=== PATIENT | male | born 1960 | race Caucasian/White ===

== ENCOUNTER → 2022-07-18 10:40 | Outpatient (CLI) | payer OTHER, SELFPAY ==
--- NOTE | ~2022-07-18 | XR_ITS ---
XR foot LT min 3V 07/18/2022 11:11 Indication: Left foot pain Procedure: 4 views left foot Comparison: No prior studies for comparison. Findings: There is an intra-articular fracture distal aspect of the fifth proximal phalanx. There are healed third and fourth metatarsal neck fractures. 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 Impression: 1: Acute intra-articular fracture distal aspect of the left fifth proximal phalanx. Reviewed, dictated and finalized at location A. K J[facility] DEALER Impression: 1: Acute intra-articular fracture distal aspect of the left fifth proximal phal anx.
== END ==
PROVIDERS: PCP Family Medicine; Visit Provider Nurse Practitioner Family
DX: S92.812A Other fracture of left foot, initial encounter for closed fracture (principal); M79.672 Pain in left foot; R22.42 Localized swelling, mass and lump, left lower limb
CPT/HCPCS: 73630